=== PATIENT | male | born 1995 | race Caucasian/White ===

== ENCOUNTER 2020-08-25 10:53 | Emergency (ER) | payer OTHER ==
[2020-08-25 12:44] LABS: RED BLOOD COUNT 5.56 M/UL (4.20-5.50); WHITE BLOOD COUNT 10.5 K/UL (4.5-11.0)
[2020-08-25 13:16] LABS: BUN/CREATININE RATIO 12 (0-10)
== END 2020-08-25 16:08 | disposition home or self-care (01) ==
LOC: ER1 10:53
PROVIDERS: Physician Assistant
DX: R07.9 Chest pain, unspecified (principal); Z90.49 Acquired absence of other specified parts of digestive tract; Z88.5 Allergy status to narcotic agent; Z88.0 Allergy status to penicillin
CPT/HCPCS: 71045; 80053; 82550; 82553; 83874; 84484; 85025; 85379; 93005; 99285